=== PATIENT | female | born 1990 | race Caucasian/White ===

== ENCOUNTER → 2018-08-15 09:22 | Outpatient (CLI) | payer OTHER, SELFPAY ==
[2018-08-15 10:35] LABS: Thyroid Stim Hormone (TSH) 2.31 uIU/mL (0.358-3.74)
== END ==
PROVIDERS: Family Provider Family Medicine; PCP Family Medicine; Visit Provider Family Medicine
DX: F32.9 Major depressive disorder, single episode, unspecified (principal)
CPT/HCPCS: 36415; 84443